=== PATIENT | female | born 1950 | race Caucasian/White ===

== ENCOUNTER 2016-08-05 16:00 | Emergency (ER) | payer OTHER ==
[2016-08-05 16:08] VITALS: BP 182/83; PULSE 65; TEMP 98; BMI 24.4
--- NOTE | 2016-08-05 17:15 | PDOC ---
History of Present Illness - General Chief Complaint: Pain Stated Complaint: PAIN IN LEGS Time Seen by Provider: 08/05/16 16:04 History Source: Patient Exam Limitations: No Limitations - History of Present Illness Initial Comments: CHIEF COMPLAINT: 66 y/o afebrile female with PMH HTN, HLD, ACS, arthritis c/o left knee pain. HISTORY OF PRESENT ILLNESS: The patient states she saw Dr. Zavala in may for left knee pain and was diagnosed with arthritis. She states he gave her a cortisone shot that only lasted 3 weeks. She states for the past few days her left knee pain has been so bad she can't get out of bed. She states it's worst when going down stairs and when sitting down on the toilet. She has been taking tylenol and doing PT with little relief. Follow up with Dr. Zavala is next week. Vital signs on arrival are notable for BP of 182/83. REVIEW OF SYSTEMS: GENERAL/CONSTITUTIONAL: No fever/chills. No weakness. No weight change. HEAD, EYES, EARS, NOSE AND THROAT: No change in vision. No ear pain or discharge. No sore throat. GENITOURINARY: No dysuria, frequency, or change in urination. MUSCULOSKELETAL: +right knee pain and swelling. No neck or back pain. SKIN: No rash or easy bruising. NEUROLOGIC: No headache, vertigo, loss of consciousness, or loss of sensation. PHYSICAL EXAM: VITAL_SIGNS: within normal limits GENERAL_APPEARANCE: alert, cooperative, mild obvious discomfort. The patient walks with a cane. MENTAL_STATUS: speech clear, oriented X 3, responds appropriately to questions. NEURO: motor intact and sensory intact in injured extremity. EXTREMITIES: good pulse in injured extremity. No erythema or warmth to affected knee. Moderate swelling to left knee with TTP of left knee joint. No TTP of tibial plataeu. Full flexion and extension of affected knee. SKIN: warm, dry, good color. Past History - Past Medical History Allergies/Adverse Reactions: Allergies Allergy/AdvReac Type Severity Reaction Status Date / Time codeine Allergy Intermediate Vomiting Verified 08/05/16 16:02 erythromycin base Allergy Intermediate ABDOMINAL Verified 08/05/16 16:02 [From E-Mycin] CRAMPS Home Medications: Ambulatory Orders Aspirin [Aspirin EC] 81 mg PO DAILY 10/23/14 Furosemide [Lasix -] 40 mg PO BID 10/23/14 Lisinopril [Prinivil -] 40 mg PO DAILY 10/23/14 Metformin HCl [Metformin HCl ER] 1,000 mg PO BID 10/23/14 Metoprolol Tartrate [Lopressor -] 50 mg PO BID 10/23/14 Rosuvastatin Calcium [Crestor] 10 mg PO DAILY 10/23/14 Vitamin E 400 unit PO DAILY 10/23/14 Cholecalciferol (Vitamin D3) [Vitamin D3 -] 6 drop PO DAILY 12/29/14 Glimepiride [Amaryl] 4 mg PO DAILY 12/29/14 [place]-3 Fatty Acids/Fish Oil [Fish Oil 1,000 mg Softgel] 1 each PO DAILY Oxycodone HCl/Acetaminophen [Percocet 5-325 mg Tablet] 1 tab PO Q6H #10 tablet MDD 5 08/05/16 Anemia: No Asthma: No Cancer: No Cardiac Disorders: Yes (TRIPLE BYPASS) CVA: Yes (TIA) COPD: No CHF: No Dementia: No Diabetes: Yes GI Disorders: No Disorders: No HTN: Yes Hypercholesterolemia: Yes Liver Disease: No Seizures: No Thyroid Disease: No - Surgical History Abdominal Surgery: No Appendectomy: No Cardiac Surgery: Yes (BYPASS TRIPLE,) Cholecystectomy: No Lung Surgery: No Neurologic Surgery: Yes (SPINAL FUSION L4-5) Orthopedic Surgery: No - Psycho/Social/Smoking Cessation Hx Anxiety: No Suicidal Ideation: No Smoking History: Current every day smoker Have you smoked in the past 12 months: Yes Number of Cigarettes Smoked Daily: 10 Information on smoking cessation initiated: Yes 'Breaking Loose' booklet given: 08/05/16 Hx Alcohol Use: No Drug/Substance Use Hx: No Substance Use Type: None Hx Substance Use Treatment: No *Physical Exam - Vital Signs Last Vital Signs Temp Pulse Resp BP Pulse Ox 98.0 F 65 18 182/83 100 08/05/16 16:02 08/05/16 16:02 08/05/16 16:02 08/05/16 16:02 08/05/16 16:02 Medical Decision Making - Medical Decision Making A/P: 66 y/o female with arthritis or possible meniscus tear to left knee. Plan is as follows: 1. xray of left knee Xray left knee IMPRESSION: No acute pathology. Suggested I send the patient home with and rx of percocet. She agreed to try it. I instructed her to take 1 pill while lying down and see how she feels. Suggested she continue icing the area and using JOE bandage. Instructed her to keep her f/u appointment with Dr. Zavala scheduled for next week. Instructed her to return to the ER with any worsening or concerning symptoms. The patient verbalizes understanding of all instructions, has no further questions and is awaiting discharge. *DC/Admit/Observation/Transfer Diagnosis at time of Disposition: Left medial knee pain - Discharge Dispostion Disposition: HOME Condition at time of disposition: Good - Patient Instructions Printed Discharge Instructions: DI for Knee Pain, DI for Meniscal Tear Additional Instructions: Discharge Instructions: -Take Percocet as prescribed; can cause drowsiness so do not drive while taking it -Alternate between ice and heat to affected extremity -Use JOE bandage and cane for support -Follow up with Dr. Zavala for scheduled appointment next week -Return to the ER with any worsening or concerning symptoms.
== END 2016-08-05 17:39 | disposition home or self-care (01) ==
LOC: JERFT 16:00
DX: M13.862 Other specified arthritis, left knee (principal); I25.10 Atherosclerotic heart disease of native coronary artery without angina pectoris; I10 Essential (primary) hypertension; Z95.1 Presence of aortocoronary bypass graft; E11.9 Type 2 diabetes mellitus without complications; Z79.84 Long term (current) use of oral hypoglycemic drugs; E78.00 Pure hypercholesterolemia, unspecified; Z86.73 Personal history of transient ischemic attack (TIA), and cerebral infarction without residual deficits
CPT/HCPCS: 73560-TC-LT; 99281-25

== ENCOUNTER 2023-01-26 11:49 | Emergency (ER) | payer OTHER ==
[2023-01-26 12:00] VITALS: RESP 18; BMI 23.6
[2023-01-26] MEDS ORDERED: ACETAMINOPHEN 325 MG TABLET (FP) PO ONE (13:30)
[2023-01-26 17:49] VITALS: BP 157/47; PULSE 54; TEMP 97.4
== END 2023-01-26 19:15 | disposition home or self-care (01) ==
LOC: JER 11:49
DX: M79.605 Pain in left leg (principal); R22.42 Localized swelling, mass and lump, left lower limb
CPT/HCPCS: 82962; 93970-TC; 99284-25